=== PATIENT | female | born 1960 | race African-American/Black ===

== ENCOUNTER 2024-05-28 11:09 | Emergency (ER) | payer OTHER ==
[~2024-05-28] VITALS: Ht 160 cm; Wt 46.3 kg
[2024-05-28] MEDS ORDERED: MORPHINE SULFATE INJ 4 MG/ML DISP.SYRIN ONE (12:46)
[2024-05-28] MEDS: MORPHINE SULFATE INJ 2 MG/ML DISP.SYRIN IV ONE ×2 (13:03→17:42)
[2024-05-28 13:07] LABS: BASOPHILS % (AUTO) 1.2 % (0.0-2.0); EOSINOPHILS % (AUTO) 1.5 % (0.0-6.0); HEMATOCRIT 35 % (33-45); HEMOGLOBIN 11.3 g/dL (11.5-14.8); LYMPHOCYTES # (AUTO) 0.3 K/uL (0.8-4.8); LYMPHOCYTES % (AUTO) 10.2 % (20.0-44.0); MEAN CORPUSCULAR HEMOGLOBIN 32 PG (26.0-33.0); MEAN CORPUSCULAR HGB CONC 32 g/dl (31.0-36.0); MEAN CORPUSCULAR VOLUME 100 fL (82-100); MONOCYTES # (AUTO) 0.4 K/uL (0.1-1.30); MONOCYTES % (AUTO) 13.3 % (2.0-12.0); NEUTROPHILS # (AUTO) 2.3 K/uL (1.8-8.9); NEUTROPHILS % (AUTO) 73.8 % (43.0-81.0); PLATELET COUNT (AUTO) 155 K/uL (150-450); RED BLOOD CELL COUNT(AUTO) 3.48 MIL/uL (4.0-5.2); WHITE BLOOD COUNT (AUTO) 3.2 K/uL (4.3-11.0)
[2024-05-28 13:13] LABS: ERYTHROCYTE SEDIMENTATION RATE 49 MM/HR (0-30)
[2024-05-28 13:14] LABS: CALCIUM, SERUM 8.9 mg/dL (8.5-10.1); CREATININE 1.2 mg/dL (0.6-1.3); POTASSIUM 4.1 mmol/L (3.5-5.1)
[2024-05-28 13:26] LABS: ALBUMIN 2.6 g/dL (3.4-5.0); BILIRUBIN,TOTAL 3.4 mg/dL (0.2-1.0); TOTAL PROTEIN, SERUM 7.4 g/dL (6.4-8.2)
[2024-05-28 14:17] LABS: LACTIC ACID 1.1 mmol/L (0.4-2.0)
[2024-05-28 15:17] LABS: ABG BASE EXCESS -0.1 mmol/L (-2.0-3.0); ABG OXYGEN SATURATION 93.4 % (94.0-98.0); ABG PCO2 44.1 mmHg (32.0-45.0); ABG PH 7.376 (7.350-7.450); ABG PO2 73.6 mmHg (83.0-108.0); COHb 0.6 % (0.5-1.5); MetHb 0.2 % (0.0-1.5); O2Hb 92.7 % (94.0-97.0); SITE, ABG RIGHT RADIAL
[2024-05-28] MEDS ORDERED: FUROSEMIDE 20 MG/2 ML VIAL ONE (15:28)
[2024-05-28] MEDS: FUROSEMIDE 20 MG/2 ML VIAL IV ONE (15:35)
[2024-05-28 15:39] LABS: INR 1.33 (0.91-1.10); PARTIAL THROMBOPLASTIN TIME 32.4 SEC (24.3-34.3); PROTHROMBIN TIME 13.8 SECS (9.2-11.1)
[2024-05-28] MEDS ORDERED: MORPHINE SULFATE INJ 2 MG/ML DISP.SYRIN ONE (17:36)
[2024-05-29] MEDS ORDERED: hydrALAZINE HCL IV 20 MG VIAL ONE (00:10)
[2024-05-29] MEDS: hydrALAZINE HCL IV 20 MG VIAL IV ONE (00:13)
[2024-05-29 00:53] VITALS: BP 154/100; TEMP 98.6; O2SAT 98
== END 2024-05-29 00:53 | disposition short-term general hospital (02) ==
LOC: ER 11:16
DX: G89.29 Other chronic pain (principal); M54.6 Pain in thoracic spine; R40.0 Somnolence; R94.31 Abnormal electrocardiogram [ECG] [EKG]; I11.0 Hypertensive heart disease with heart failure; J90 Pleural effusion, not elsewhere classified; R06.00 Dyspnea, unspecified; F32.9 Major depressive disorder, single episode, unspecified; Z86.718 Personal history of other venous thrombosis and embolism; Z86.79 Personal history of other diseases of the circulatory system; Z87.09 Personal history of other diseases of the respiratory system; Z87.19 Personal history of other diseases of the digestive system
CPT/HCPCS: 99291; 70450; 96374; 96375 ×2; 93005; 82803; 71045; 96376; 72131; 72128; 85025; 87040 ×2; 83605; 85652; 36415; 80053; 84484; 85730; 83880; 36600; J1940; J2270 ×2; J0360